=== PATIENT | male | born 1930 | race Caucasian/White ===

== ENCOUNTER 2019-03-17 11:20 | Outpatient (CLI) | payer BC, MEDICARE ==
[~2019-03-17 11:20] MED LIST: APIX5TAB3 PO; ATOR40TA PO; LYR75C PO; PROP60CA37 PO
== END 2019-03-17 23:59 | disposition home or self-care (01) ==
LOC: RAD 11:20
PROVIDERS: ATTEND Surgery
DX: N44.2 Benign cyst of testis (principal); N43.3 Hydrocele, unspecified; N50.9 Disorder of male genital organs, unspecified
CPT/HCPCS: 76870